=== PATIENT | female | born 1950 | race Caucasian/White ===

== ENCOUNTER 2017-06-17 08:28 | Day surgery (SDC) | payer MEDICARE, BC ==
[~2017-06-17 08:28] MED LIST: Bupivacaine 0.5% 50 ML MDV ONE; Lidocaine 1% with EPINEPHrine 1:100,000 50 ML MDV ONE
[2017-06-17] MEDS ORDERED: fentaNYL 100 MCG/2 ML SDV ONE (09:14)
[2017-06-17] MEDS ORDERED: Propofol 200 MG/20 ML SDV ONE ×3 (09:14→10:23)
[2017-06-17] MEDS ORDERED: Midazolam 1 MG/ML 2 ML SDV ONE (09:14)
[2017-06-17] MEDS ORDERED: Lactated Ringers 1,000 ML IV SCH (09:15)
[2017-06-17] MEDS ORDERED: Glucagon,Human Recombinant 1 MG Vial ONE (09:54)
[2017-06-17 11:48] VITALS: BP 142/71
--- NOTE | 2017-06-18 07:57 | OR ---
DATE OF PROCEDURE: 06/17/2017 PREOPERATIVE DIAGNOSES: History of colon polyps and external hemorrhoids. POSTOPERATIVE DIAGNOSES: Diverticulosis, history of colon polyps, and external hemorrhoids. PROCEDURES: Colonoscopy to the cecum and excision of external hemorrhoids x3. ANESTHESIA: IV anesthesia with monitored anesthesia care. INDICATION: This 67-year-old white female is here for a colonoscopy. She has history of colon polyps. Her last colonoscopic exam was a couple of years ago. Additionally, she complains of external hemorrhoids which make it very difficult for her to clean herself after defecating. She requests they be excised. I counseled her for a colonoscopy with possible biopsy and/or polypectomy including risks and alternatives, as well as excision of her external hemorrhoids including risks and alternatives, and she gave her informed consent to proceed. DESCRIPTION OF PROCEDURE: The patient was placed in the left lateral decubitus position. IV anesthesia was administered by the Anesthesia Service. Time-out was held. A rectal exam was performed, which was unremarkable, except for the external hemorrhoids. The flexible video Olympus colonoscope was introduced through her anus, up her rectum, and out her colon all the way to the cecum. This was very difficult negotiating through the sigmoid colon due to spasm. We did have to give her some glucagon. Once the cecum was reached, the scope was slowly withdrawn, examining the mucosa throughout. We saw several left- sided diverticula. There was no bleeding or inflammation associated with them. The scope was retroflexed in the rectum with the distal rectum appearing unremarkable. The scope was straightened and removed. Next, she was placed in jackknife position. Her anal and perianal area were prepped and draped in the usual sterile fashion. We repeated the time-out. Lidocaine 1% with epinephrine in a 50:50 mix with 0.5% Marcaine was infiltrated about the 3 external hemorrhoids. They were each excised radially. The incisions were then closed with running locking stitches of 3-0 Vicryl. All looked well. She was placed supine and brought to recovery room in a good condition. Jack Chavez MD /[id number] PIPER
== END 2017-06-17 11:55 | disposition home or self-care (01) ==
LOC: JP.SDS 08:28
PROVIDERS: ATTEND Surgery
DX: Z12.11 Encounter for screening for malignant neoplasm of colon (principal); K57.30 Diverticulosis of large intestine without perforation or abscess without bleeding; K64.4 Residual hemorrhoidal skin tags; Z86.010 Personal history of colon polyps; I10 Essential (primary) hypertension; E11.9 Type 2 diabetes mellitus without complications; F41.9 Anxiety disorder, unspecified; F32.9 Major depressive disorder, single episode, unspecified; Z88.8 Allergy status to other drugs, medicaments and biological substances; Z91.040 Latex allergy status; Z91.030 Bee allergy status; Z91.018 Allergy to other foods; Z98.890 Other specified postprocedural states; Z90.710 Acquired absence of both cervix and uterus; Z96.651 Presence of right artificial knee joint
CPT/HCPCS: 46250; G0105; J1610; J2250; J2704; J3010; J7120; 88304

== ENCOUNTER 2023-03-08 15:44 | Emergency (ER) | payer MEDICARE, BC ==
[2023-03-08] MEDS ORDERED: Ondansetron 4 MG/2 ML SDV IVPUSH ONE (16:20)
[2023-03-08 16:30] LABS: HEMATOCRIT 34.4 % (34.3-46.0); HEMOGLOBIN 11.1 g/dL (11.2-15.5); MEAN CORPUSCULAR HEMOGLOBIN 28.5 pg (31.6-35.5); MEAN CORPUSCULAR HGB CONC 32.3 g/dL (31.6-35.5); MEAN CORPUSCULAR VOLUME 88.4 fL (81.4-99.0); RED BLOOD CELL COUNT 3.89 M/uL (3.77-5.24); WHITE BLOOD CELL COUNT,WBC 5.3 K/uL (3.2-11.0)
[2023-03-08] MEDS ORDERED: Sodium Chloride 0.9% 1,000 ML IV SCH (16:30)
[2023-03-08 16:50] LABS: APPEARANCE,URINE CLOUDY (CLEAR); BILIRUBIN,URINE NEGATIVE (NEGATIVE); COLOR,URINE YELLOW (YELLOW); GLUCOSE,URINE NEGATIVE (NEGATIVE); KETONES,URINE NEGATIVE (NEGATIVE); LEUKOCYTE ESTERASE,URINE NEGATIVE (NEGATIVE); NITRITE,URINE NEGATIVE (NEGATIVE); OCCULT BLOOD,URINE NEGATIVE (NEGATIVE); PH,URINE 5.5 (5.0-8.0); PROTEIN,URINE 100 mg/dL (NEGATIVE); UROBILINOGEN,URINE 0.2 EU/dL (0.2-1.0)
[2023-03-08 16:56] LABS: AMPHETAMINES SCREEN, URINE NEGATIVE (NEGATIVE); BARBITURATE SCREEN,URINE NEGATIVE (NEGATIVE); BENZODIAZEPINES SCREEN,URINE NEGATIVE (NEGATIVE); METHADONE SCREEN, URINE NEGATIVE (NEGATIVE); METHAMPHETAMINES SCREEN, URINE NEGATIVE (NEGATIVE); OXYCODONE SCREEN,URINE NEGATIVE (NEGATIVE); PROPOXYPHENE SCREEN,URINE NEGATIVE (NEGATIVE); THC SCREEN,URINE 50 NG/ML NEGATIVE (NEGATIVE)
[2023-03-08 17:04] LABS: A/G RATIO 1.6 (1.2-2.2); ALANINE AMINOTRANSFERASE,ALT 36 U/L (12-78); ALBUMIN 3.7 g/dL (3.4-5.0); ALKALINE PHOSPHATASE 64 U/L (46-116); ANION GAP 14.6 mmol/L (5.0-14.0); ASPARTATE AMNIOTRANSFERASE,AST 25 U/L (15-37); BILIRUBIN TOTAL 0.5 mg/dL (0.2-1.0); BLOOD UREA NITROGEN,BUN 14 mg/dL (7-18); CALCIUM 8.7 mg/dL (8.5-10.1); CARBON DIOXIDE,CO2 21 mmol/L (21-32); CHLORIDE,CL 106 mmol/L (100-108); CREATININE 0.9 mg/dL (0.6-1.0); EST CRCL DRUG DOSING (CG) 52.34 mL/min; ESTIMATED GFR 69 mL/min (>60); GLUCOSE RANDOM 123 mg/dL (74-106); POTASSIUM,K 3.6 mmol/L (3.6-5.2); SODIUM,NA 142 mmol/L (140-148)
[2023-03-08 17:25] LABS: AMORPHOUS SEDIMENT,URINE RARE; BACTERIA,URINE MODERATE; EPITHELIAL CELLS,URINE FEW; MUCUS,URINE MODERATE; RBC,URINE 0-5 (0-5)
[2023-03-08 18:28] VITALS: BP 126/61; PULSE 66
== END 2023-03-08 18:30 | disposition home or self-care (01) ==
LOC: JP.ED 15:44
DX: E86.0 Dehydration (principal); N39.0 Urinary tract infection, site not specified; E87.20 Acidosis, unspecified; E78.00 Pure hypercholesterolemia, unspecified; I10 Essential (primary) hypertension; E11.9 Type 2 diabetes mellitus without complications; Z88.8 Allergy status to other drugs, medicaments and biological substances; Z91.040 Latex allergy status; Z91.018 Allergy to other foods; Z79.899 Other long term (current) drug therapy; Z79.82 Long term (current) use of aspirin; Z79.84 Long term (current) use of oral hypoglycemic drugs
CPT/HCPCS: 36415; 74150; 80053; 80305; 80307; 81001; 83605; 84145; 84484; 85027; 87086; 87088; 87186; 96361; 96374; 99285; J2405; J7030

== ENCOUNTER 2023-03-24 06:28 | Day surgery (SDC) | payer MEDICARE, BC ==
[2023-03-24] MEDS ORDERED: Lactated Ringers 1,000 ML IV SCH (07:15)
[2023-03-24] MEDS ORDERED: Midazolam 1 MG/ML 2 ML SDV ONE (07:18)
[2023-03-24] MEDS ORDERED: fentaNYL 50 MCG/ML SDV ONE (07:18)
[2023-03-24] MEDS ORDERED: Propofol 200 MG/20 ML SDV ONE (07:18)
[2023-03-24 09:41] VITALS: BP 115/57; PULSE 51
== END 2023-03-24 09:30 | disposition home or self-care (01) ==
LOC: JP.SDS 06:28
PROVIDERS: ATTEND Family Medicine
DX: Z12.11 Encounter for screening for malignant neoplasm of colon (principal); K57.30 Diverticulosis of large intestine without perforation or abscess without bleeding; E11.9 Type 2 diabetes mellitus without complications; K59.00 Constipation, unspecified; E78.5 Hyperlipidemia, unspecified; I10 Essential (primary) hypertension; I25.10 Atherosclerotic heart disease of native coronary artery without angina pectoris; F41.9 Anxiety disorder, unspecified; Z79.82 Long term (current) use of aspirin; Z91.040 Latex allergy status; Z88.8 Allergy status to other drugs, medicaments and biological substances; Z91.030 Bee allergy status
CPT/HCPCS: J2250; J2704; J3010; J7120